=== PATIENT | male | born 1985 | race Caucasian/White ===

== ENCOUNTER 2024-11-02 23:34 | Emergency (ER) | payer MEDICARE, MEDICAID ==
[~2024-11-02] VITALS: Ht 182.9 cm; Wt 81.3 kg
[2024-11-02 23:40] VITALS: BP 125/81; PULSE 106; RESP 19; TEMP 98; O2SAT 97
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
[2024-11-03] MEDS ORDERED: LIDO700A32 TOP (00:41)
[2024-11-03] MEDS ORDERED: CYCL-1 PO (00:41)
[2024-11-03] MEDS: cyclobenzaprine 10mg tablet PO ONE (01:33)
[2024-11-03] MEDS: LIDOcaine 5% patch TP ONE (01:34)
[2024-11-03] MEDS: ketorolac trometh 15mg/ml vial 15 MG/ML ML IM ONE (01:34)
== END 2024-11-03 02:16 | disposition home or self-care (01) ==
LOC: ER 23:35
DX: M54.2 Cervicalgia (principal); M25.512 Pain in left shoulder; M25.511 Pain in right shoulder
CPT/HCPCS: 96372; 99283; J1885

== ENCOUNTER 2025-03-12 05:52 | Day surgery (SDC) | payer MEDICARE, MEDICAID ==
[2025-03-06 11:43] LABS: MEAN PLATELET VOLUME 9.2 FL (7.4-10.4); PRE OP HEMATOCRIT 42.1 % (42.0-52.0); PRE OP HEMOGLOBIN 14.4 g/dL (14.0-17.9); PRE OP PLATELET COUNT 269 X10'3 (140-440); PRE OP WHITE BLOOD COUNT 10.4 10'3 (4.8-10.8); RED CELL DISTRIBUTION WIDTH 13.1 % (11.5-14.5)
--- NOTE | 2025-03-06 11:53 | ELECTROCARDIOGRAPH REPORT ---
[facility] Test Date: 2025-03-06 Test Time: 11:51:10 Pat Name: GISSELLE CALDERA Department: [facility]-PRE-OP Patient ID: [facility]-[id number] Room: Gender: M Motel Maid: : 1985 Requested By: RICH MOREAU Order Number: [id number] Reading MD: Dr. SD Mejia Measurements Intervals [place] Rate: 56 P: 17 NE: 138 QRS: 34 QRSD: 95 T: 29 QT: 403 QTc: 389 Interpretive Statements Sinus bradycardia ST elev, probable normal early repol pattern Electronically Signed On 03-06-2025 18:44:[address] SD Mejia Please click the below link to view image of tracing.
[2025-03-06 12:06] LABS: CREATININE 0.77 MG/DL (0.60-1.10); PRE OP ALT 35 U/L (30-65); PRE OP ANION GAP 6 (8-16); PRE OP AST 17 U/L (10-37); PRE OP BILIRUB, TOTAL 0.8 MG/DL (0.0-1.0); PRE OP GLUCOSE 192 MG/DL (70-104); PRE OP POTASSIUM 4.4 MMOL/L (3.4-5.1); PRE OP SODIUM 142 MMOL/L (135-145); TOTAL CARBON DIOXIDE 31.0 MMOL/L (24-32); eGFR > 90 ML/MIN
[2025-03-12] VITALS (8 sets, daily range): BP systolic 98–120; BP diastolic 66–76; PULSE 68–96; RESP 11–17; TEMP 97.8; O2SAT 94–98
[~2025-03-12] VITALS: Ht 182.9 cm; Wt 91.1 kg
[2025-03-12] MEDS: ceFAZolin 2gm/dext,iso 50mL 50 ML IV ONE (05:30)
[~2025-03-12 05:52] MED LIST: ALBU8HFA INH; CHOL10006 PO; HYDR-3686 PO; INSU100V11 SQ; LISI5TAB22 PO; LORA10TA65 PO; MAGNESIUM PO; OMEGA 3 PO; PANT40TA54 PO
[2025-03-12] MEDS: ringers solution, lacted 1,000 ML IV SCH (06:36)
[2025-03-12] MEDS ORDERED: LIDOcaine 2% (20mg/ml) 5ml vial ONE (06:54)
[2025-03-12] MEDS ORDERED: BUPIVAcaine/PF 2.5mg/ml (0.25%) 10ml vial ONE (06:54)
[2025-03-12] MEDS ORDERED: fentaNYL/PF 50MCG/1 ML 2ML syringe ONE (07:52)
[2025-03-12] MEDS ORDERED: midazolam 1 mg/ML 2ml injection ONE (07:53)
[2025-03-12] MEDS ORDERED: propofol inj 20 ML IV ONE (07:57)
[2025-03-12] MEDS: LIDOcaine 2% (20 mg/ml) 5ml cardiac syringe IJ ONE ×2 (07:59→08:10)
[2025-03-12] MEDS: BUPIVAcaine/PF 2.5mg/ml (0.25%) 10ml vial IJ ONE ×2 (07:59→08:10)
--- NOTE | 2025-03-12 13:44 | OPERATIVE REPORT ---
Operative Report Providers to ~ Date of Procedure: Mar 12, 2025 Pre-Operative Diagnosis: Right wrist carpal tunnel syndrome Post-Operative Diagnosis SAME as PRE-Op Procedure Performed Right wrist endoscopic carpal tunnel release Surgeon: Sameer Moore MD Vessel Liner None Anesthesiologist: Carlos Martino Type of Anesthesia: Other Findings: Estimated Blood Loss: None Specimen Removed: None Description of Procedure: The patient is a 40-year-old with right sided carpal tunnel syndrome refractory to nonsurgical treatment. Surgery is indicated to relieve symptoms. Risks and benefits were discussed with the patient and the patient agreed to proceed. Once in the operating room the arm was prepped and draped in usual manner. Local anesthetic was infiltrated proximal to the volar wrist crease after time- out procedure. The tourniquet was elevated on the forearm to 250 mmHg A distally-based forearm fascia flap was raised and the carpal tunnel scope was placed in the canal in line with the radial side of the ring finger. The median nerve was protected while the scope was pressed firmly up against the underside of the transverse carpal ligament. The blade was deployed and the scope was drawn proximally dividing the ligament under direct vision. Scope was removed the flap was transected and the fascia proximal to that was divided a short distance using the blunt scissor tips. The incision was irrigated and closed nylon suture. A sterile dressing was then applied. The tourniquet was released and the hand perfused well. The patient was taken to the recovery room in stable condition and tolerated the procedure well. SAMEER MOORE Jr., MD Mar 12, 2025 13:44
== END 2025-03-12 09:12 | disposition home or self-care (01) ==
LOC: PAS 05:52
PROVIDERS: ATTEND Orthopaedic Surgery Hand Surgery
DX: G56.01 Carpal tunnel syndrome, right upper limb (principal); I10 Essential (primary) hypertension; E10.9 Type 1 diabetes mellitus without complications; I25.2 Old myocardial infarction; G47.30 Sleep apnea, unspecified; F90.9 Attention-deficit hyperactivity disorder, unspecified type; G47.00 Insomnia, unspecified; F41.9 Anxiety disorder, unspecified; F32.A Depression, unspecified; F17.200 Nicotine dependence, unspecified, uncomplicated; Z79.1 Long term (current) use of non-steroidal anti-inflammatories (NSAID); Z79.4 Long term (current) use of insulin; Z79.899 Other long term (current) drug therapy; Z90.49 Acquired absence of other specified parts of digestive tract; Z98.890 Other specified postprocedural states; Z88.8 Allergy status to other drugs, medicaments and biological substances
CPT/HCPCS: 29848; 36415; 80053; 82948; 85025; 93005; A4215; A6449; A7000; J2003; J2250; J2704; J3010; J3490; J7030; J7120; Z7506; Z7512; Z7610